=== PATIENT | male | born 1955 | race Caucasian/White ===

== ENCOUNTER 2019-03-18 00:21 | Emergency (ER) | payer BC ==
[~2019-03-18] VITALS: Ht 177.8 cm; Wt 81.8 kg
[2019-03-18 00:28] VITALS: BP 118/74; PULSE 96; TEMP 97.4
[2019-03-18 01:09] LABS: BASO % 0.2 % (0.0-2.0); EOS # 0.1 (0.0-0.7); EOS % 0.9 % (0-4.0); GRAN % 45.7 % (42.2-75.2); HEMATOCRIT 41.6 % (42.0-52.0); HEMOGLOBIN 13.6 g/dl (13.5-18.0); LYMPH # 2.4 (1.2-3.4); LYMPH % 37.1 % (20.0-51.0); MEAN CELL VOLUME 95 fl (80.0-100.0); MEAN CORPUSCULAR HEMOGLOBIN 31 pg (27.0-31.0); MEAN CORPUSCULAR HGB CONC 33 g/dl (33.0-37.0); MEAN PLATELET VOLUME 9.8 fl (7.4-10.4); MONO % 15.9 % (1.7-9.3); PLATELET COUNT 188 K/mm3 (130-400); REDCELL DISTRIBUTION WIDTH-CV 12.7 % (11.5-14.5)
[2019-03-18 01:20] LABS: ALBUMIN 4.2 gm/dL (3.5-5.0); BILIRUBIN,TOTAL 0.3 mg/dL (0.0-1.0); CALCIUM 8.9 mg/dL (8.4-10.2); CREATININE, serum 1.26 (0.66-1.25); MAGNESIUM 2.2 mg/dL (1.6-2.3); TOTAL PROTEIN 7.4 gm/dL (6.4-8.2)
== END 2019-03-18 02:36 | disposition home or self-care (01) ==
LOC: COL.ER 00:21
PROVIDERS: Emergency Medicine
DX: F10.129 Alcohol abuse with intoxication, unspecified (principal); Y90.8 Blood alcohol level of 240 mg/100 ml or more
CPT/HCPCS: J2405; J7030